=== PATIENT | female | born 1985 | race Caucasian/White ===

== ENCOUNTER 2017-05-31 14:28 | Emergency (ER) | payer MEDICAID ==
[~2017-05-31 14:28] MED LIST: HYDR50CA PO; NO HOME MEDS
[2017-05-31] MEDS ORDERED: LORazepam 1 MG tablet PO ONE (15:40)
[2017-05-31] MEDS ORDERED: OLANZapine 5mg rapidly disint. tablet PO ONE (15:40)
[2017-05-31] MEDS ORDERED: oxyCODONE/APAP 10/325mg tablet PO ONE (17:10)
[2017-05-31] MEDS ORDERED: LIDOcaine 1.5% w/epinephrine 1:200,000 5ml ampul IJ ONE (17:15)
[2017-05-31] MEDS ORDERED: TETanus/Pertussis (Acell)/Diphther VAC/PF (Tdap-Adult) 0.5ml syringe IM ONE (17:15)
[2017-05-31] MEDS ORDERED: DOXY100C43 PO (17:54)
[2017-05-31] MEDS ORDERED: cephalexin 250mg capsule PO ONE (17:55)
[2017-05-31 18:14] VITALS: BP 102/55
== END 2017-05-31 18:08 | disposition home or self-care (01) ==
LOC: ER 14:28
DX: L02.414 Cutaneous abscess of left upper limb (principal); F15.10 Other stimulant abuse, uncomplicated; G89.29 Other chronic pain; M54.9 Dorsalgia, unspecified; F12.10 Cannabis abuse, uncomplicated; Z88.2 Allergy status to sulfonamides; Z79.899 Other long term (current) drug therapy
CPT/HCPCS: 10060; 99284; A6266; A6449; J3490; 90715